=== PATIENT | female | born 1950 | race Caucasian/White ===

== ENCOUNTER 2022-07-12 20:53 | Inpatient (IN) | payer MEDICARE, BC ==
[~2022-07-12] VITALS: Ht 165.1 cm; Wt 65.8 kg
[2022-07-12] MEDS ORDERED: IV NORMAL SALINE 1000 ML BAG IV ONE (21:15)
[2022-07-12] MEDS ORDERED: VANCOMYCIN IV 1,000 MG in IV DEXTROSE 5% 250 ML IV ONE (21:15)
[2022-07-12] MEDS ORDERED: ACETAMINOPHEN 650 MG SUPP.RECT RC ONE ×2 (21:15→21:24)
[2022-07-12] MEDS ORDERED: CEFEPIME HCL 1 G in IV DEXTROSE 5% 50 ML IV ONE (21:15)
[2022-07-12 21:24] LABS: HEMATOCRIT 33.3 % (31.2-41.9); MEAN CORPUSCULAR HEMOGLOBIN 28.5 uug (24.7-32.8); MEAN CORPUSCULAR VOLUME 81.7 fL (75.5-95.3); PLATELET COUNT (AUTO) 158 K/uL (179-408)
[2022-07-12] MEDS ORDERED: CEFEPIME HCL 1 G VIAL ONE (21:24)
[2022-07-12] MEDS ORDERED: VANCOMYCIN IV 200 ML ONE (21:24)
[2022-07-12] MEDS ORDERED: DABR50CA PO (21:31)
[2022-07-12] MEDS ORDERED: LEVO25TA2 PO (21:31)
[2022-07-12] MEDS ORDERED: [UNRECOGNIZED DRUG - REMARK] PO (21:31)
[2022-07-12 21:51] LABS: ALANINE AMINOTRANSFERASE 218 U/L (14-59); ALKALINE PHOSPHATASE 233 U/L (50-136); ASPARTATE AMINOTRANSFERASE 322 U/L (15-37); BILIRUBIN,DIRECT 0.7 mg/dL (0.0-0.2); BILIRUBIN,TOTAL 1.1 mg/dL (0.2-1.0); CARBON DIOXIDE 24 mmol/L (21-32); CHLORIDE 92 mmol/L (98-107); CREATININE 0.9 mg/dL (0.6-1.3); GLUCOSE 148 mg/dL (74-106); TOTAL PROTEIN, SERUM 7.1 g/dL (6.4-8.2); UREA NITROGEN, BLOOD 14 mg/dL (7-18)
[2022-07-12 21:55] LABS: POTASSIUM 2.7 mmol/L (3.5-5.1)
[2022-07-12 23:45] LABS: *BILIRUBIN,URIN NEGATIVE (NEGATIVE); *BLOOD, URINE 1+ (NEGATIVE); *CLARITY,URINE CLEAR (CLEAR); *COLOR,URINE YELLOW (YELLOW); *KETONES,URINE 1+ (NEGATIVE); *UROBILINOGEN,URINE 0.2 E.U./dl (NORMAL); LEUKOCYTE ESTERASE ,URINE NEGATIVE (NEGATIVE); NITRITE, URINE NEGATIVE (NEGATIVE); UGLUCOSE NEGATIVE (NEGATIVE)
[2022-07-13] MEDS ORDERED: ASPIRIN 300 MG RECTAL SUPP RC ONE ×2 (00:06→00:15)
[2022-07-13 00:30] LABS: BACTERIA,URINE FEW /HPF (NONE SEEN); SQUAMOUS EPITHELIAL CELL,UR NONE SEEN /HPF (NONE SEEN); WBC,URINE NONE SEEN /HPF (0-3)
[2022-07-13] MEDS: POTASSIUM CHLORIDE 50 ML IV SCH ×4 (00:32→04:44)
[2022-07-13] MEDS ORDERED: REMEDY ESSENTIAL ZINC PASTE 113 GM TP PRN (01:00)
[2022-07-13] MEDS ORDERED: MAGNESIUM HYDROXIDE 30 ML LIQUID UDC PO PRN (01:00)
[2022-07-13] MEDS ORDERED: ONDANSETRON 4 MG/2 ML VIAL IV PRN (01:00)
[2022-07-13] MEDS: IV NS 1000 ML 1,000 ML IV PRN ×2 (03:25→15:43)
[2022-07-13] MEDS: ENOXAPARIN SODIUM 40 MG/0.4 ML DISP.SYRIN SQ SCH ×2 (03:25→20:41)
[2022-07-13 04:00] VITALS: BP 131/81
[2022-07-13] MEDS ORDERED: CEFEPIME HCL 1 G VIAL ONE (04:33)
[2022-07-13] MEDS: CEFEPIME HCL 1 G in IV DEXTROSE 5% 50 ML IV SCH ×3 (05:08→22:03)
[2022-07-13] MEDS: PANTOPRAZOLE SODIUM 40 MG TABLET.DR PO SCH (06:04)
[2022-07-13] MEDS ORDERED: SWABABLE VALVE TRANSFER SET EA MC ONE (08:00)
[2022-07-13] MEDS ORDERED: IV NORMAL SALINE 250 ML IV ONE (08:00)
[2022-07-13] MEDS ORDERED: IOHEXOL 350 100 ML INFUS..BTL ONE (08:00)
[2022-07-13 08:54] LABS: HEMATOCRIT 29.9 % (31.2-41.9); MEAN CORPUSCULAR HEMOGLOBIN 28.1 uug (24.7-32.8); MEAN CORPUSCULAR VOLUME 83.4 fL (75.5-95.3); PLATELET COUNT (AUTO) 118 K/uL (179-408)
[2022-07-13] MEDS ORDERED: ASPIRIN 300 MG RECTAL SUPP RC SCH (09:00)
[2022-07-13 09:09] LABS: CREATININE 0.8 mg/dL (0.6-1.3); POTASSIUM 3.5 mmol/L (3.5-5.1)
[2022-07-13 09:15] LABS: BILIRUBIN,TOTAL 0.6 mg/dL (0.2-1.0); TOTAL PROTEIN, SERUM 6.2 g/dL (6.4-8.2)
[2022-07-13] MEDS: VANCOMYCIN IV 750 MG in IV DEXTROSE 5% 250 ML IV SCH ×2 (09:31→20:42)
[2022-07-13] MEDS: ASPIRIN 81 MG TAB.CHEW PO SCH (11:07)
[2022-07-13 12:00] VITALS: BP 135/66
[2022-07-13] MEDS ORDERED: LEVO125T68 PO (13:53)
[2022-07-13] MEDS ORDERED: VENL150C58 PO (13:53)
[2022-07-13] MEDS ORDERED: TRAM2TAB PO (13:53)
[2022-07-13] MEDS ORDERED: DABR75CA PO (13:53)
[2022-07-13 14:43] LABS: *BILIRUBIN,URIN NEGATIVE (NEGATIVE); *BLOOD, URINE 2+ (NEGATIVE); *CLARITY,URINE CLEAR (CLEAR); *COLOR,URINE YELLOW (YELLOW); *KETONES,URINE NEGATIVE (NEGATIVE); *UROBILINOGEN,URINE 0.2 E.U./dl (NORMAL); LEUKOCYTE ESTERASE ,URINE NEGATIVE (NEGATIVE); NITRITE, URINE NEGATIVE (NEGATIVE); PH,URINE 6.5 (5.0-8.0); UGLUCOSE NEGATIVE (NEGATIVE)
[2022-07-13 14:55] LABS: *CREATININE,URINE 53.7 mg/dL (30-125); *URINE TOTAL PROTEIN RANDOM 48.3 mg/dL (<150/24HR)
[2022-07-13] MEDS: ACETAMINOPHEN 325 MG TABLET PO PRN ×2 (15:44→22:10)
[2022-07-13 16:00] VITALS: BP 138/69
[2022-07-13 16:24] LABS: WBC,URINE 0-3 /HPF (0-3)
[2022-07-13 20:00] VITALS: BP 145/85
[2022-07-13] MEDS ORDERED: levoFLOXacin 500 MG/D5W 500 MG in PREMIXED 1 EACH IV SCH (20:30)
[2022-07-13] MEDS ORDERED: levoFLOXacin 500 MG/D5W 100 ML ONE (20:54)
[2022-07-14] VITALS: BP 126/78
[2022-07-14] MEDS: IV NS 1000 ML 1,000 ML IV PRN (02:54)
[2022-07-14 04:00] VITALS: BP 147/82
[2022-07-14] MEDS: PANTOPRAZOLE SODIUM 40 MG TABLET.DR PO SCH (06:03)
[2022-07-14] MEDS: LEVOTHYROXINE SODIUM 125 MCG TABLET PO SCH (06:03)
[2022-07-14] MEDS: CEFEPIME HCL 1 G in IV DEXTROSE 5% 50 ML IV SCH ×3 (06:03→22:04)
[2022-07-14 06:53] LABS: HEMATOCRIT 26.3 % (31.2-41.9); MEAN CORPUSCULAR HEMOGLOBIN 27.9 uug (24.7-32.8); MEAN CORPUSCULAR VOLUME 81.6 fL (75.5-95.3); PLATELET COUNT (AUTO) 120 K/uL (179-408)
[2022-07-14 07:06] LABS: BILIRUBIN,TOTAL 0.5 mg/dL (0.2-1.0); CREATININE 0.7 mg/dL (0.6-1.3); MAGNESIUM 1.6 mg/dL (1.8-2.4); PHOSPHOROUS 1.7 mg/dL (2.5-4.9); TOTAL PROTEIN, SERUM 5.7 g/dL (6.4-8.2)
[2022-07-14 07:27] LABS: IRON, SERUM 22 ug/dL (50-175)
[2022-07-14 08:00] VITALS: BP 139/69
[2022-07-14 08:00] LABS: POTASSIUM 2.7 mmol/L (3.5-5.1)
[2022-07-14] MEDS ORDERED: POTASSIUM CHLORIDE 20 MEQ TAB.PRT.SR PO ONE (08:15)
[2022-07-14] MEDS ORDERED: POTASSIUM PHOSPHATE MM 15 MMOL in IV NORMAL SALINE 250 ML IV ONE ×2 (08:30→12:00)
[2022-07-14] MEDS: ASPIRIN 81 MG TAB.CHEW PO SCH ×2 (09:00→09:13)
[2022-07-14] MEDS: VENLAFAXINE XR 75 MG TAB.ER.24H PO SCH (09:13)
[2022-07-14] MEDS: MAGNESIUM SULFATE/D5W 100 ML IV SCH ×2 (09:44→15:40)
[2022-07-14] MEDS: VANCOMYCIN IV 1,000 MG in IV DEXTROSE 5% 250 ML IV SCH ×2 (10:55→21:52)
[2022-07-14] MEDS: POTASSIUM CHLORIDE 50 ML IV SCH ×4 (10:57→14:40)
[2022-07-14 12:00] VITALS: BP 158/82
[2022-07-14] MEDS: ACETAMINOPHEN 325 MG TABLET PO PRN (12:14)
[2022-07-14 16:17] VITALS: BP 146/83
[2022-07-14] MEDS: ENOXAPARIN SODIUM 40 MG/0.4 ML DISP.SYRIN SQ SCH (20:24)
[2022-07-15 00:02] VITALS: BP 144/79
[2022-07-15] MEDS: ACETAMINOPHEN 325 MG TABLET PO PRN ×3 (00:17→22:30)
[2022-07-15] MEDS: IV NS 1000 ML 1,000 ML IV PRN (04:31)
[2022-07-15] MEDS: CEFEPIME HCL 1 G in IV DEXTROSE 5% 50 ML IV SCH ×3 (05:33→21:02)
[2022-07-15 06:00] VITALS: BP 122/74
[2022-07-15] MEDS: PANTOPRAZOLE SODIUM 40 MG TABLET.DR PO SCH (06:25)
[2022-07-15] MEDS: LEVOTHYROXINE SODIUM 125 MCG TABLET PO SCH (06:25)
[2022-07-15 07:41] LABS: ALANINE AMINOTRANSFERASE 94 U/L (14-59); ALKALINE PHOSPHATASE 146 U/L (50-136); ASPARTATE AMINOTRANSFERASE 90 U/L (15-37); BILIRUBIN,TOTAL 0.4 mg/dL (0.2-1.0); CARBON DIOXIDE 26 mmol/L (21-32); CHLORIDE 101 mmol/L (98-107); CREATININE 0.5 mg/dL (0.6-1.3); GLUCOSE 94 mg/dL (74-106); MAGNESIUM 1.9 mg/dL (1.8-2.4); PHOSPHOROUS 2.3 mg/dL (2.5-4.9); POTASSIUM 3.7 mmol/L (3.5-5.1); TOTAL PROTEIN, SERUM 5.6 g/dL (6.4-8.2); UREA NITROGEN, BLOOD 5 mg/dL (7-18)
[2022-07-15 08:00] VITALS: BP 144/88
[2022-07-15 08:53] LABS: MEAN CORPUSCULAR HEMOGLOBIN 28.2 uug (24.7-32.8); MEAN CORPUSCULAR VOLUME 81.8 fL (75.5-95.3); PLATELET COUNT (AUTO) 122 K/uL (179-408)
[2022-07-15] MEDS: ASPIRIN 81 MG TAB.CHEW PO SCH (09:00)
[2022-07-15] MEDS: VENLAFAXINE XR 75 MG TAB.ER.24H PO SCH (09:11)
[2022-07-15] MEDS: VANCOMYCIN IV 1,000 MG in IV DEXTROSE 5% 250 ML IV SCH ×2 (09:11→21:55)
[2022-07-15] MEDS ORDERED: NEUTRA PHOS PACKET PO ONE (10:00)
[2022-07-15 11:21] VITALS: BP 139/81
[2022-07-15 15:50] VITALS: BP 165/81
[2022-07-15 16:04] LABS: BAND % (MANUAL) 4 % (0-10); LYMPHOCYTES % (MANUAL) 30 % (20-40); MONOCYTES % (MANUAL) 13 % (2-10); NEUTROPHILS % (MANUAL) 53 % (42-75)
[2022-07-15 20:00] VITALS: BP 161/78
[2022-07-15] MEDS: ENOXAPARIN SODIUM 40 MG/0.4 ML DISP.SYRIN SQ SCH (20:58)
[2022-07-16] VITALS: BP 140/74
[2022-07-16 05:00] VITALS: BP_SYST 139; BP_DIAS 73; BP_DIAS 78
[2022-07-16] MEDS: PANTOPRAZOLE SODIUM 40 MG TABLET.DR PO SCH (06:56)
[2022-07-16] MEDS: LEVOTHYROXINE SODIUM 125 MCG TABLET PO SCH (06:56)
[2022-07-16] MEDS: CEFEPIME HCL 1 G in IV DEXTROSE 5% 50 ML IV SCH (06:56)
[2022-07-16] MEDS ORDERED: NEUTRA PHOS PACKET PO ONE (09:15)
[2022-07-16] MEDS ORDERED: POTASSIUM CHLORIDE 20 MEQ TAB.PRT.SR PO ONE (09:15)
[2022-07-16] MEDS ORDERED: ACIDOPHILUS/BULGARICUS CHEW TAB PO SCH (09:30)
[2022-07-16] MEDS: VENLAFAXINE XR 75 MG TAB.ER.24H PO SCH (09:42)
[2022-07-16] MEDS: ASPIRIN 81 MG TAB.CHEW PO SCH (09:43)
[2022-07-16 10:07] LABS: A/G RATIO 0.8 (0.7-1.7); ALBUMIN 2.3 g/dL (2.9-4.4); ALPHA-1-GLOBULIN 0.4 g/dL (0.0-0.4); ALPHA-2-GLOBULIN 0.6 g/dL (0.4-1.0); BETA GLOBULIN 0.7 g/dL (0.7-1.3); GAMMA GLOBULIN 1.2 g/dL (0.4-1.8); M-SPIKE 0.9 g/dL (Not Observed)
[2022-07-16] MEDS ORDERED: CEPH500C2 PO (10:41)
[2022-07-16] MEDS ORDERED: ASPI-618 PO (10:41)
[2022-07-16] MEDS ORDERED: ACID1TAB4 PO (10:41)
[2022-07-16 11:28] VITALS: BP 147/83
[2022-07-16] MEDS ORDERED: CEFEPIME HCL 2 G in IV DEXTROSE 5% 50 ML IV SCH (14:00)
== END 2022-07-16 13:05 | disposition home health service (06) | DRG 871 ==
LOC: ER 20:56 → TELE3 07-13 01:00 → MEDSURG3 07-16 08:05
PROVIDERS: ADMIT Student in an Organized Health Care Education/Training Program; ATTEND Internal Medicine
PROC: 05HC33Z Insertion of Infusion Device into Left Basilic Vein, Percutaneous Approach (ICD-10-PCS; principal; 2022-07-14)
DX: A41.9 Sepsis, unspecified organism (principal); G92.8 Other toxic encephalopathy; J18.9 Pneumonia, unspecified organism; I21.4 Non-ST elevation (NSTEMI) myocardial infarction; E87.1 Hypo-osmolality and hyponatremia; E44.0 Moderate protein-calorie malnutrition; D61.818 Other pancytopenia; J21.8 Acute bronchiolitis due to other specified organisms; Z20.822 Contact with and (suspected) exposure to COVID-19; Z90.49 Acquired absence of other specified parts of digestive tract; E87.6 Hypokalemia; E86.1 Hypovolemia; I34.0 Nonrheumatic mitral (valve) insufficiency; H91.90 Unspecified hearing loss, unspecified ear; C43.61 Malignant melanoma of right upper limb, including shoulder; Z79.899 Other long term (current) drug therapy; R74.8 Abnormal levels of other serum enzymes; T45.1X5A Adverse effect of antineoplastic and immunosuppressive drugs, initial encounter; Y92.89 Other specified places as the place of occurrence of the external cause; Z88.0 Allergy status to penicillin; R00.0 Tachycardia, unspecified
CPT/HCPCS: 36415; 70030-TC; 70450; 71045; 71275; 83550; 83605; 83690; 83735; 83970; 84100; 84155; 84156; 84165; 84295; 84300; 84443; 84481; 84484; 85025; 86803; 87040; 87806; 93005; 93307; A4663; C1758; G0378; J0692; J1650; J1956; J2405; J3370; J3475; J3480; J3490; J7040; J7050; Q9967